=== PATIENT | male | born 1995 | race Two or more races ===

== ENCOUNTER 2020-01-31 00:33 | Emergency (ER) | payer SELFPAY ==
[~2020-01-31] VITALS: Ht 165.1 cm; Wt 56.7 kg
[2020-01-31 00:40] VITALS: BP 128/90
[2020-01-31] MEDS ORDERED: ALPRAZOLAM 0.5 MG TABLET PO ONE (01:00)
[2020-01-31] MEDS ORDERED: ALPRAZOLAM 0.5 MG TABLET ONE (01:04)
== END 2020-01-31 01:31 | disposition home or self-care (01) ==
LOC: ER 00:35
DX: F45.8 Other somatoform disorders (principal); F41.0 Panic disorder [episodic paroxysmal anxiety]; F43.10 Post-traumatic stress disorder, unspecified